=== PATIENT | female | born 1990 | race Caucasian/White ===

== ENCOUNTER 2025-04-23 14:13 | Emergency (ER) | payer OTHER ==
[~2025-04-23] VITALS: Ht 172.7 cm; Wt 79.6 kg
[~2025-04-23 14:13] MED LIST: AUGMENTIN 875-1 EACH PO; NORCO 5-325 TA1 EACH PO; ONDANSETRON HCL8 MG SL; PYRIDIUM200 MG PO; ZOFRAN ODT4 MG SL
[2025-04-23 15:47] VITALS: BP 124/82
== END 2025-04-23 15:47 | disposition home or self-care (01) ==
LOC: ED 14:13
DX: S93.401A Sprain of unspecified ligament of right ankle, initial encounter (principal); Z88.7 Allergy status to serum and vaccine; Z88.1 Allergy status to other antibiotic agents; X50.1XXA Overexertion from prolonged static or awkward postures, initial encounter
CPT/HCPCS: 73610; 99283